=== PATIENT | female | born 1955 | race American Indian/Alaskan Native ===

== ENCOUNTER 2017-05-14 12:55 | Outpatient (CLI) | payer MEDICARE ==
--- NOTE | 2017-05-14 13:55 | XRay Report ---
XRAY LEFT SHOULDER THREE VIEWS: 05/14/17 12:55:00 CLINICAL: Pain FINDINGS: No fracture or dislocation. Mild acromioclavicular joint arthritis and cortical irregularity at the greater tuberosity of the humerus. Normal glenohumeral joint. Normal AC joint. The soft tissues are normal. IMPRESSION: Acromioclavicular joint arthritis and cortical changes at the greater tuberosity suggesting possible rotator cuff disease.
== END 2017-05-14 12:56 | disposition home or self-care (01) ==
LOC: SPVIMAG 12:55
DX: M19.012 Primary osteoarthritis, left shoulder (principal)

== ENCOUNTER 2017-08-29 13:31 | Outpatient (CLI) | payer MEDICARE ==
--- NOTE | 2017-08-29 14:25 | XRay Report ---
Lumbar spine 4 views: X. History: Muscle spasm of the back. Findings: Normal height of vertebral bodies. Decrease in height of intervertebral disc spaces. Sclerotic articular surfaces with peripheral osteophytes suggestive of degenerative changes. This is most pronounced at the lower lumbar spine. No fracture. No soft tissue calcification. Impression: Degenerative lumbar spine.
== END 2017-08-29 13:32 | disposition home or self-care (01) ==
LOC: XRAY 13:31
DX: M62.830 Muscle spasm of back (principal)
CPT/HCPCS: 72110